=== PATIENT | female | born 2000 | race Caucasian/White ===

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

== ENCOUNTER 2018-05-06 04:24 | Emergency (ER) | payer SELFPAY ==
--- NOTE | 2018-05-06 04:45 | EDPHY ---
H & P Stated Complaint: SI, etoh, zanax and MJ Source: Patient Exam Limitations: No limitations - Personal History Current Tetanus Diphtheria and Acellular Pertussis (TDAP): Yes Tetanus Vaccine Date: <10 years - Medical/Surgical History Hx Asthma: No Hx Chronic Respiratory Disease: No Hx Diabetes: No Hx Cardiac Disease: No Hx Renal Disease: No Hx Cirrhosis: No Hx Alcoholism: No Hx HIV/AIDS: No Hx Splenectomy or Spleen Trauma: No Other PMH: denies as per pt - Social History Smoking Status: Current every day smoker Time Seen by Provider: 05/06/18 04:28 HPI/ROS: HPI The patient presents with suicidal ideation, brought in by police on an M1 hold. The patient says that she has had a rough day in general in over the last several weeks is had a lot of social stressors. Today her ex-boyfriend got drunk and texted her that there 7 months relationship was a "waste of time ". This was very upsetting to her as this was the 1st person she has been in level with. She got off of work after receiving these tacks in drink alcohol, use marijuana and Xanax. She was in communication with him and said that she felt worthless in like dying. He was concerned and called police. The patient says over the last several months she was told by a family medicine doctor that she may have anxiety or depression. She did see a therapist to thought she may have borderline personality disorder. She is not on any psychiatric medication. REVIEW OF SYSTEMS 10 systems were reviewed and negative with the exception of the elements mentioned in the history of present illness. PMHx: No diabetes, no hypertension Soc Hx: College student, drinks alcohol, uses marijuana PHYSICAL General Appearance: Alert, tearful, appears mildly intoxicated Eyes: Pupils equal and round no pallor or injection ENT, Mouth: Mucous membranes moist Respiratory: There are no retractions, lungs are clear to auscultation Cardiovascular: Regular rate and rhythm Gastrointestinal: Abdomen is soft and non-tender, no masses, bowel sounds normal Neurological: A&O, moves all extremities Skin: Warm and dry, no rashes Musculoskeletal: Neck is supple non tender Extremities: symmetrical, full range of motion Psychiatric: Patient is oriented X 3, there is no agitation (Riguzzi,Kayleigh) Constitutional: Initial Vital Signs Temperature (C) 36.9 C 05/06/18 04:32 Heart Rate 96 01/27/19 04:32 Respiratory Rate 20 05/06/18 04:32 Blood Pressure 131/83 H 05/06/18 04:32 O2 Sat (%) 99 05/06/18 04:32 O2 Delivery Mode Room Air Allergies/Adverse Reactions: mushroom Allergy (Verified 05/06/18 04:31) shellfish derived Allergy (Verified 05/06/18 04:31) Home Medications: Medication Instructions Recorded NK [No Known Home Meds] 05/06/18 Medical Decision Making Differential Diagnosis: This is a 18-year-old female who presents on an M1 hold placed by police for suicidal ideation after being in an argument with her ex-boyfriend in the setting of alcohol and other substance use. The patient says she generally feels worthless though does not have any plan to hurt herself currently. Differential diagnosis includes alcohol intoxication, polysubstance abuse, stress response, suicidal ideation with underlying depression or anxiety. ( Kayleigh Max) Other Provider: Patient signed out to me at 0700 pending mental health evaluation. At 1230, evaluation has been complete and psychiatrist has lifted the M1 hold. They feel she is safe for discharge home and have arranged for follow-up. (Janes Whipple) - Data Points Laboratory Results: Laboratory Results 05/06/18 05:00 05/06/18 05:00 05/06/18 05/06/18 05/06/18 05:00 05:00 04:35 WBC 7.05 10^3/uL 10^3/uL (3.80-9.50) RBC 4.66 10^6/uL 10^6/uL (4.18-5.33) Hgb 12.9 g/dL g/dL (12.6-16.3) Hct 39.5 % % (38.0-47.0) MCV 84.8 fL fL (81.5-99.8) MCH 27.7 pg L pg (27.9-34.1) MCHC 32.7 g/dL g/dL (32.4-36.7) RDW 13.5 % % (11.5-15.2) Plt Count 287 10^3/uL 10^3/uL (150-400) MPV 9.0 fL fL (8.7-11.7) Neut % (Auto) 48.2 % % (39.3-74.2) Lymph % (Auto) 42.0 % % (15.0-45.0) [place] % (Auto) 6.8 % % (4.5-13.0) Eos % (Auto) 2.0 % % (0.6-7.6) Baso % (Auto) 0.7 % % (0.3-1.7) Nucleat RBC Rel Count 0.0 % % (0.0-0.2) Absolute Neuts (auto) 3.40 10^3/uL 10^3/uL (1.70-6.50) Absolute Lymphs (auto) 2.96 10^3/uL 10^3/uL (1.00-3.00) Absolute Monos (auto) 0.48 10^3/uL 10^3/uL (0.30-0.80) Absolute Eos (auto) 0.14 10^3/uL 10^3/uL (0.03-0.40) Absolute Basos (auto) 0.05 10^3/uL 10^3/uL (0.02-0.10) Absolute Nucleated RBC 0.00 10^3/uL 10^3/uL (0-0.01) Immature Gran % 0.3 % % (0.0-1.1) Immature Gran # 0.02 10^3/uL 10^3/uL (0.00-0.10) Sodium 140 mEq/L mEq/L (135-145) Potassium 3.7 mEq/L mEq/L (3.5-5.2) Chloride 111 mEq/L H mEq/L (97-110) Carbon Dioxide 19 mEq/l L mEq/l (22-31) Anion Gap 10 mEq/L mEq/L (6-14) BUN 12 mg/dL mg/dL (7-23) Creatinine 0.9 mg/dL mg/dL (0.6-1.0) Estimated GFR > 60 Glucose 91 mg/dL mg/dL (70-100) Calcium 9.0 mg/dL mg/dL (8.5-10.4) Total Bilirubin 0.2 mg/dL mg/dL (0.1-1.4) AST 24 IU/L IU/L (14-46) ALT 19 IU/L IU/L (9-52) Alkaline Phosphatase 57 IU/L IU/L (38-126) Total Protein 7.3 g/dL g/dL (6.3-8.2) Albumin 4.4 g/dL g/dL (3.5-5.0) Urine Opiates Screen NEGATIVE (NEGATIVE) Urine Barbiturates NEGATIVE (NEGATIVE) Ur Phencyclidine Scrn NEGATIVE (NEGATIVE) Ur Amphetamine Screen NEGATIVE (NEGATIVE) U Benzodiazepines Scrn NEGATIVE (NEGATIVE) Urine Cocaine Screen NON-NEGATIVE H (NEGATIVE) U Marijuana (THC) Screen NON-NEGATIVE H (NEGATIVE) Ethyl Alcohol 128 mg/dL H mg/dL (0-10) Departure - Departure Disposition: Home, Routine, Self-Care Clinical Impression: Cocaine abuse Alcohol intoxication Qualifiers: Complication of substance-induced condition: uncomplicated Qualified Code(s): F10.920 - Alcohol use, unspecified with intoxication, uncomplicated Condition: Good Instructions: Cocaine Abuse (ED), Abuse of Alcohol (DC) Additional Instructions: Follow up with the resources provided. Avoid abuse of drugs and alcohol. Return for worsening of condition. Referrals: [facility],. [Clinic] - As per Instructions
[2018-05-06 05:38] LABS: PLATELET COUNT 287 10^3/uL (150-400)
[2018-05-06 12:39] VITALS: BP 124/78
--- NOTE | 2018-05-06 14:54 | ASMTTLCEVL ---
TLC Evaluation - Basic Information Evaluation Start Date and 05/06/2018 07:15 AM Time Hospital Status Answers: M1 Hold 72-hr M1 Hold Start Date 05/06/2018 03:41 AM and Time Patient statement Notes: "I was just having a rough day". Narrative Notes: Pt is a 18 y/o female, college jill, brought to the ED by the police on an M1 hold. Per M1 hold, "Respondent texted reporting libertarian that she wanted to kill herself because of statements respondent made about her. Stated she took Xanax (1 bar), 7 alcoholic drinks and marijuana. Made herself throw up". Per ED physician's report pt says, " she has had rough days in general over the last sveral weeks and has had a lot of social stressors. Today her ex bf got drunk and texted her that their 7 month relationship had been a waste of time. This was very upsetting as this was the first person she has been in love with. She got off of work after receiving these texts and drank alcohol, used marijuana and Xanax. She was in communication with him and said that she felt worthless and felt like dying. Ex BF contacted policePt's BAL was 128 and her labs were positive for marijuana and cocaine. Clinician met with pt following her medical clearance. Pt was alert, affect sad/blunted and mood seemed sad. She reported a hx of anxiety and periodic depressions. This depressive period she is currently experiencing has been longer than most, 6-7 months, and is concerning her. She expresses moving between moments of hopelessness and hopefullness, questions her worthiness, has some difficulty motivating herself to get up and go out and is more tearful. She reports sleeping a little more, though sometimes struggling to fall asleep and being an "emotional eater", maybe "binging". When asked about last evening she began by describing her relationship with her ex BF (broke up in November 2017) as "toxic; that's why I broke up with him". She described a current relationship with him that doesn't always feel healthy or "right". They're in contact daily and occasionally are intimate. When clinician offered the phrase "lack of boundaries" as a way to possibly describe they're relationship, pt concurred. About 1 1/2 months ago ex BF told her that he had herpes. She was tested and is positive and can identify him as the person who gave them to her. He told her that he got them from a girl that he had slept with when he was angry with her. Pt having herpes is a significant concern for her and thoughts of this preoccupy her. She would like to date, but is very anxious about communicating her medical condition to a man. In addition to the stress caused by this relationship and the disagnosis of herpes, pt is attending school, but not enjoying it. "I've never liked school: I know I have to go, a high school diploma won't be enough to get me the pay I need at a job". Pt denies that she was suicidal last evening. She describes feeling "emotionally overwhelmed" by what her ex BFwas saying. She reports thoughts such as, "it would be easier if I weren't here", but without any desire or intent to kill herself. She denies any past intent/planning/suicidal act. She denies any past or current self-harming. Pt describes looking forward to graduating from school next spring, pursuing a masters in social work so that she can get a job helping to make public policy. 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 In addition to depression pt does experience anxiety, "as far back as I can remember". She associates it with a poor self-esteem which may have been partially caused and compounded by "bullying". She reported 2 periods of cyber bullying when she was a freshman in high school and then again when she was a freshman in college. She believes that her friends speak poorly about her and struggles with believing that people like her. Pt describes having panic attacks several times last year. Pt shares that her father has bipolar disorder and has had periods of depression, anger and "brightness". She describes their relationship as conflictual with her father being unable to support her need for mental health assistance,he tells her to "fix it". She is close with her mother. She is exceedingly anxious over her parents receiving a bill from the hospital. Her parents have limited funds and she is "sure" they "will pull me out of college". She did decide that she will tell her mother, but give her father as little information as possible. Clinician offered to support her while she called her mother from the ED, but pt declined; " I need some time to get my head in shape". At this point she had been in the ED for quite some time and had become tearful over not being able to return to her home yet. Pt denies HI and hallucinations. She denied any symptoms associated with paulina. Diagnosis History Notes: No known diagnosis. Prior suicide attempts Notes: Pt denies. Prior hospitalizations Notes: Pt denies. Treatment Responses Notes: Pt liked several counseling sessions she had at [facility] in response to her panic attacks, but believes she needs longer term therapy. History of violence Notes: Pt denies. Therapist: None Psychiatrist: None Medications (name, dosage, route, freq uency) Notes: None Allergies/Reaction Notes: Mushrooms Shell fish Sleep Notes: Sometimes struggles to fall asleep. Sleeping somewhat more than typical. Appetite Notes: Pt describes herself as an "emotional eater". She mentions "binging". She describes large weight fluctuations. Medical/Surgical history Notes: None known. Substance use history (frequency, intensity, his tory, duration) Notes: Alcohol - "A couple of times a week,...5-6 shots at a time". Pt reports that she decreased her drinking after blacking out several times. Marijuana - A few times a week; it helps with anxiety. Cocaine - Rarely, states she used it several days ago Xanax - Pt reported that she asked someone for a Xanax last night. It is not a drug she takes normally. It did not show up in her labs. Family composition Notes: Pt's parents are . Her mother lives in [place] and her father in [place]. She has a younger brother who is a freshman at and a 16 y/o sister. Need for family Answers: No participation in patient's care Family psychiatric/substance abuse history Notes: Father has been diagnosed with bi-polar disorder/ unknown substance addiction hx Pt's sister has a hx of "cutting" and is now in therapy and taking medication for depression PGF - Alcoholic Developmental history Notes: Pt's family moved to [place] for her jill year of high school. FOP left mother after 1 month. Pt and her mother moved back to [place] for pt's senior year. Pt denies childhood traumas, but does say that her father went through periods of "yelling" Pt reports "never being a good student". She inferred that she struggles with both motivation and concentration. She presently has a 2.1 average. Abuse concerns Answers: None Marital status/children Notes: No Living situation Notes: Pt lives with meliza in [place]. Sexual history/orientation Notes: Heterosexual Peer support/family strengths Notes: Pt describes supportive relationships with roomates, friends and her mother. Education level/history Notes: Pt is a jill at studying political science. She would like to get her masters in social work and help develop social welfare policy. Work history Notes: Pt works at a restaurant in [place]. Notes: No Legal Notes: Denies. Mosque/Spiritual Notes: Denies Leisure Notes: Pt is quite physically active. She enjoys going to the gym daily, runs. She has run in half-marathons and was on the ski team. She continues to ski also. Patient's strengths Answers: Athletic (Please select at least TWO strengths): Insightful Intelligent Motivated for Treatment Willingness TLC Evaluation - Mental Status Exam Appearance: Answers: Appropriate Clean Well Groomed Neat Eye Contact: Answers: Good/Direct Mood: Answers: Sad Affect: Answers: Anxious Blunted Congruent w/ Mood Sad Tearful Behavior: Answers: Appropriate Cooperative Speech: Answers: Relevant Logical Clear Coherent Thought Process: Answers: Organized Oriented Alert Goal Oriented Intact Insight: Answers: Fair Judgement: Answers: Fair Depression Answers: Crying Spells Signs/Symptoms: Difficulty Concentrating Diminished Interest Diminished Pleasure Psychomotor Retardation Sad Mood Worthlessness Anxiety Signs/Symptoms Answers: Generalized Anxiety Hallucinations: Answers: None Current Stage of Change Answers: Precontemplation Pt reported to have Answers: Yes suicidal/self-injuring ideation/behavior? Pt reported to be making Answers: Yes suicidal/self-injuring threats? Pt reported to have Answers: No aggression/assault ideation/behavior? Pt reported to be making Answers: No aggression/assault threats? Pt exhibits inability to Answers: No care for self/grave disability? Ideation/behavior is Answers: No chronic? Patient has a specific Answers: No plan? Pt has access to means to Answers: No execute the plan? Ideation involves Answers: No serious/lethal intent? Ideation has Answers: No delusional/hallucinatory content? History of Answers: Yes suicidal/self-injuring ideation, behavior, or threats? History of Answers: No aggressive/assaultive ideation, behavior, or threats? History of serious Answers: No physical harm to self/others while in treatment setting? TLC Evaluation - Suicide/Homicide Risk Suicide Risk Factors: Answers: Alcohol/Heavy Drug Use Anxiety/Panic, Severe Impulsivity Homicide/violence risk Answers: Heavy Alcohol Use factors: Current Suicidal Answers: No Ideation? Current Suicide Ideation Occasionally Frequency: Current Suicidal Ideation Answers: Yes in the Past 48 Hours? Current Suicidal Ideation Answers: Yes in the Past Month? Current Suicidal Answers: Yes Ideation, Worst Ever? Suicide Internal Answers: Absence of Psychosis Protective Factors: Other Notes: Uses physical activity as a tool to help with stress. Suicide External Answers: Social Support Protective Factors: Other Notes: Important family relationships Ranking of patient's Answers: Low suicidal risk: Ranking of patient's Answers: Low homicidal risk: TLC Evaluation - Wrap-up BSS Total Score: 0 AXIS I Diagnosis (include DSM-V and ICD-10 codes), must also be entered in [employer], which is the source of truth. Notes: Unspecified Anxiety Disorder 300.00 (F41.9) In consultation with [facility] ED physician,Dr Whipple and on-call psychiatrist,Dr Correa, both concurred that Pt does not appear to meet 27-65 criteria requiring psychiatric hospitalization as Pt does not appear to be an imminent risk of harm to self due to a mental illness condition. 12:25 provided telephone order read back vacating M1 hold at Evaluation End Date and 05/06/2018 02:40 PM Time (HH:MM): Date Signed: 05/06/2018 02:53 PM Electronically Signed By:Alla Cr
--- NOTE | 2018-05-06 15:03 | ASMTTCLDSP ---
[facility] Discharge Disposition Disposition: Answers: Discharge If Answers: Yes DISCHARGED: Patient/family given suicide hotline info & [employer] brochure? Disposition Notes: Notes: Pt did tell her roomate about her experience in the ER over the past 12 hours so has an immediate person that she can turn to if needed. She has plans to tell her mother about this over the the next couple days in order to broaden her support group. Pt given the following resources with recommendations to follow through with contacting them: I Information re applying for Medicaid. Names of individuals and agencies which can provide mental health and substance abuse therapy to Medicaid and sliding scale clients. To contact her PCP or [facility] re medication evaluation [facility] Line and address [facility] Pt stated she wanted to remain sober for a period of time; this was recommended to her and encouraged Discharge Concerns/Recommendations: Notes: In consultation with [facility] ED physician,Dr Whipple and on-call psychiatrist,Dr Correa, both concurred that Pt does not appear to meet 27-65 criteria requiring psychiatric hospitalization as Pt does not appear to be an imminent risk of harm to self due to a mental illness condition. Psychiatrist vacating M1 dr Correa Hold: Date and time M1 hold 05/06/2018 12:25 PM vacated (time format is hh:mm): Type of Hold: Answers: M1/72-hour Hold Hold initiated by: Answers: Police Date Signed: 05/06/2018 03:02 PM Electronically Signed By:Alla Cr
== END 2018-05-06 12:41 | disposition home or self-care (01) ==
DX: F14.10 Cocaine abuse, uncomplicated (principal); R45.851 Suicidal ideations
CPT/HCPCS: 80305; G0480